=== PATIENT | female | born 1935 | race Caucasian/White ===

== ENCOUNTER 2016-06-15 09:29 | Emergency (ER) | payer MEDICARE ==
[2016-06-15 10:24] VITALS: BP 159/56
--- NOTE | 2016-06-15 10:48 | UC ---
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 - History of Current Complaint Chief Complaint: UCBackPain Stated Complaint: NECK/LEFT SHOULDER/ARM COMPLAINT Time Seen by Provider: 06/15/16 10:08 Hx Obtained From: Patient Hx Last Menstrual Period: n/a ?: No Onset/Duration: Sudden Onset, Lasting Days Timing: Constant Severity Initially: Severe Severity Currently: Severe Location Of Pain: Is Diffuse - left shoulder blade Pain Intensity: 8 Pain Scale Used: 0-10 Numeric Character: Sharp, Aching, Spasmodic Aggravating Factor(s): Movement Alleviating Factor(s): Rest Associated Signs And Symptoms: Positive: Negative Related History: Other: - s/p shoulder repalcement - Risk Factors Non-Orthopedic Risk Factor: Negative DVT Risk Factors: Negative - Allergies/Home Medications Allergies/Adverse Reactions: Allergies Allergy/AdvReac Type Severity Reaction Status Date / Time Ciprofloxacin [From Cipro] Allergy Severe Anaphylatic Verified 06/15/16 10:12 Shock, severe body aches Propoxyphene [From Darvon] Allergy Severe Anaphylatic Verified 06/15/16 10:12 Shock Tramadol AdvReac Intermediate NAUSEA/VOMI Verified 06/15/16 10:12 TING Home Medications: Home Medications Acetaminophen TAB* [Tylenol TAB*] 1,000 mg PO ONCE PRN 06/15/16 [History Confirmed 06/15/16] Simvastatin [Zocor 40 MG (NF)] 40 mg PO QPM 06/15/16 [History Confirmed 06/15/16 ] PMH/Surg Hx/FS Hx/Imm Hx Previously Healthy: Yes Endocrine History Of: Reports: Diabetes - TYPE 2 Denies: Thyroid Disease Cardiovascular History Of: Reports: Hypertension - TAKES LISINOPRIL Denies: Pacemaker/ICD Respiratory History Of: Denies: Asthma, Bronchitis GI/ History Of: Denies: Ulcer, Renal Disease Neurological History Of: Denies: Migraine Psychological History Of: Denies: Anxiety, Depression - Surgical History Surgical History: Yes Surgery Procedure, Year, and Place: ORIF LEFT HUMERUS 1969,. Carpal Tunnel BILATERAL HANDS 1996,. Right Rotator Cuff 2008,. Left Rotator Cuff 2003,. Cataract SURGERY,. Left shoulder replacement-03/28,. Colon 2013-[facility], . left arm with metal - Family History Known Family History: Positive: Hypertension - Social History Alcohol Use: None Substance Use Type: None Smoking Status (MU): Never Smoked Tobacco - Immunization History Most Recent Influenza Vaccination: 01/20/2014 Most Recent Tetanus Shot: 2012 Most Recent Pneumonia Vaccination: 7 YEARS AGO Review of Systems Constitutional: Negative Skin: Negative Eyes: Negative ENT: Negative Respiratory: Negative Cardiovascular: Negative Gastrointestinal: Negative Genitourinary: Negative Motor: Negative Neurovascular: Negative Musculoskeletal: Arthralgia, Decreased ROM, Myalgia Neurological: Negative Psychological: Negative All Other Systems Reviewed And Are Negative: Yes Physical Exam Triage Information Reviewed: Yes Appearance: Well-Appearing, Well-Nourished, Pain Distress Vital Signs: Initial Vital Signs Temp 98.2 F 06/15/16 10:00 Pulse 78 06/15/16 10:00 Resp 18 06/15/16 10:00 BP 159/56 06/15/16 10:00 Pulse Ox 100 06/15/16 10:00 Vital Signs Reviewed: Yes Eye Exam: Normal Eyes: Positive: Conjunctiva Clear ENT Exam: Normal ENT: Positive: Normal ENT inspection, Hearing grossly normal, Pharynx normal, TMs normal Dental Exam: Normal Neck exam: Normal Neck: Positive: Supple, Nontender, No Lymphadenopathy Respiratory Exam: Normal Respiratory: Positive: Chest non-tender, Lungs clear, Normal breath sounds Cardiovascular Exam: Normal Cardiovascular: Positive: RRR, No Murmur, Pulses Normal Abdominal Exam: Normal Abdomen Description: Positive: Nontender, No Organomegaly, Soft Bowel Sounds: Positive: Present Musculoskeletal Exam: Normal Musculoskeletal: Positive: No Edema, Strength Limited @ - in left shoulder, ROM Limited @ - in left shoulder in all directions, Other: - no deformity or crepitus, Neurological Exam: Normal Neurological: Positive: Alert, Muscle Tone Normal Psychological Exam: Normal Skin Exam: Normal Shoulder Course/Dx - Course Course Of Treatment: hx obtained, exam performed, ROM assessment she was able to move her shoulder in very limited ROM due to pain, no deformity, swelling or crepitus noted. - Differential Dx/Diagnosis Differential Diagnosis/HQI/PQRI: Arthritis, Bursitis, Contusion, Fracture (Open) , Sprain, Strain, Tendonitis, Other - MO Provider Diagnoses: Rhomboid strain. back pain Discharge - Discharge Plan Condition: Stable Disposition: HOME Additional Instructions: Wear the sling for support to rest the muscle in your back. twice a day go thought your Range of motion, like you did in PT. You can take tylenol 1000 mg every 8 hours for the next few day. Biofreeze or bengay for betime. Heat multiple times a day , just not with the linament. follow up if symptoms do not improve with rest.
== END 2016-06-15 11:27 | disposition home or self-care (01) ==
LOC: UCCORT 09:29
DX: S46.812A Strain of other muscles, fascia and tendons at shoulder and upper arm level, left arm, initial encounter (principal); X50.3XXA Overexertion from repetitive movements, initial encounter; Y93.89 Activity, other specified; Y92.69 Other specified industrial and construction area as the place of occurrence of the external cause; Z88.1 Allergy status to other antibiotic agents; Z88.5 Allergy status to narcotic agent; E11.8 Type 2 diabetes mellitus with unspecified complications; I10 Essential (primary) hypertension
CPT/HCPCS: 99212; G0463

== ENCOUNTER 2017-05-02 10:16 | Emergency (ER) | payer MEDICARE ==
[2017-05-02 10:24] VITALS: BP 191/63
--- NOTE | 2017-05-02 10:32 | UC ---
Respiratory Complaint HPI - HPI Summary HPI Summary: + INFLUENZA EXPOSURE + FOR FLU PT. HAS NO SX , NO COUGH ,NO SORE THROAT, NO FEVER OR CHILLS - History of Current Complaint Chief Complaint: UCGeneralIllness Stated Complaint: MEDICATION Time Seen by Provider: 05/02/17 10:18 Hx Obtained From: Patient Hx Last Menstrual Period: n/a Onset/Duration: Gradual Onset Timing: Constant Severity Initially: Mild Severity Currently: None Aggravating Factors: Nothing Alleviating Factors: Nothing Associated Signs And Symptoms: Positive: Negative - Allergies/Home Medications Allergies/Adverse Reactions: Allergies Allergy/AdvReac Type Severity Reaction Status Date / Time Ciprofloxacin [From Cipro] Allergy Severe Anaphylatic Verified 05/02/17 10:24 Shock, severe body aches Propoxyphene [From Darvon] Allergy Severe Anaphylatic Verified 05/02/17 10:24 Shock Tramadol AdvReac Intermediate NAUSEA/VOMI Verified 05/02/17 10:24 TING PMH/Surg Hx/FS Hx/Imm Hx Endocrine History: Diabetes Cardiovascular History: Hypertension - Surgical History Surgical History: Yes Surgery Procedure, Year, and Place: ORIF LEFT HUMERUS 1969,. Carpal Tunnel BILATERAL HANDS 1996,. Right Rotator Cuff 2008,. Left Rotator Cuff 2003,. Cataract SURGERY,. Left shoulder replacement-03/28,. Colon 2012-[facility], . left arm with metal - Family History Known Family History: Positive: Hypertension - Social History Alcohol Use: None Substance Use Type: None Smoking Status (MU): Never Smoked Tobacco - Immunization History Most Recent Influenza Vaccination: Most Recent Tetanus Shot: 2012 Most Recent Pneumonia Vaccination: 7 YEARS AGO Review of Systems Constitutional: Negative Skin: Negative Eyes: Negative ENT: Negative Respiratory: Negative Cardiovascular: Negative Gastrointestinal: Negative Genitourinary: Negative Motor: Negative Neurovascular: Negative Musculoskeletal: Negative Neurological: Negative Psychological: Negative Is Patient Immunocompromised?: No All Other Systems Reviewed And Are Negative: Yes Physical Exam Triage Information Reviewed: Yes Appearance: Well-Appearing, No Pain Distress, Well-Nourished Vital Signs: Initial Vital Signs Temp 98.9 F 05/02/17 10:21 Pulse 78 05/02/17 10:21 Resp 16 05/02/17 10:21 BP 191/63 05/02/17 10:21 Pulse Ox 99 05/02/17 10:21 Vital Signs Reviewed: Yes Eye Exam: Normal Eyes: Positive: Conjunctiva Clear ENT: Positive: Normal ENT inspection, Hearing grossly normal, Pharynx normal Neck: Positive: Supple, Nontender, No Lymphadenopathy Respiratory: Positive: Chest non-tender, Lungs clear, Normal breath sounds Cardiovascular: Positive: RRR, No Murmur, Pulses Normal Abdominal Exam: Normal Abdomen Description: Positive: Nontender, Soft Bowel Sounds: Positive: Present Skin Exam: Normal UC Diagnostic Evaluation - Laboratory O2 Sat by Pulse Oximetry: 99 Respiratory Course/Dx - Differential Dx/Diagnosis Provider Diagnoses: INFLUENZA EXPOSURE Discharge - Discharge Plan Condition: Stable Disposition: HOME Prescriptions: Oseltamivir Phosphate [Tamiflu] 75 mg PO DAILY WITH MEAL #14 cap Patient Education Materials: Influenza (ED) Referrals: Melani Wu MD [Primary Care Provider] - If Needed Additional Instructions: EXPOSURE TO INFLUENZA PLEASE TAKE TAMIFLU 1 PILL DAILY X 14 DAYS
== END 2017-05-02 10:40 | disposition home or self-care (01) ==
LOC: UCCORT 10:16
DX: Z20.828 Contact with and (suspected) exposure to other viral communicable diseases (principal); E11.9 Type 2 diabetes mellitus without complications; I10 Essential (primary) hypertension; Z96.612 Presence of left artificial shoulder joint; Z88.1 Allergy status to other antibiotic agents; Z88.5 Allergy status to narcotic agent
CPT/HCPCS: 99212; G0463

== ENCOUNTER 2017-05-03 08:57 | Emergency (ER) | payer MEDICARE ==
[2017-05-03 09:50] VITALS: BP 133/72
--- NOTE | 2017-05-03 10:46 | UC ---
Truncal Trauma HPI - HPI Summary HPI Summary: Patient was having a coughing fit and fell landing with her left flank and ribs against the toilet. she is being treated for the flu currently. cough is present ,bruising ad erythema over the left posterior ribs. - History Of Current Complaint Chief Complaint: UCGeneralIllness Stated Complaint: FLU EXPOSURE,FALL LFT SIDE RIBS Time Seen by Provider: 05/03/17 10:34 Hx Obtained From: Patient Hx Last Menstrual Period: n/a ?: No Onset/Duration: Sudden Onset, Lasting Hours Onset Of Pain: Immediate Severity Initially: Severe Severity Currently: Severe Mechanism Of Injury: Direct Blow, Fall From A Standing Position Aggravating Factor(s): Movement, Deep Breathing, Cough Alleviating factor(s): Nothing Associated Signs And Symptoms: Positive: Cough - Allergies/Home Medications Allergies/Adverse Reactions: Allergies Allergy/AdvReac Type Severity Reaction Status Date / Time Ciprofloxacin [From Cipro] Allergy Severe Anaphylatic Verified 05/03/17 09:49 Shock, severe body aches Propoxyphene [From Darvon] Allergy Severe Anaphylatic Verified 05/03/17 09:49 Shock Tramadol AdvReac Intermediate NAUSEA/VOMI Verified 05/03/17 09:49 TING PMH/Surg Hx/FS Hx/Imm Hx Previously Healthy: Yes - Surgical History Surgical History: Yes Surgery Procedure, Year, and Place: ORIF LEFT HUMERUS 1969,. Carpal Tunnel BILATERAL HANDS 1996,. Right Rotator Cuff 2008,. Left Rotator Cuff 2003,. Cataract SURGERY,. Left shoulder replacement-03/28,. Colon 2012-[facility], . left arm with metal - Family History Known Family History: Positive: Hypertension - Social History Alcohol Use: None Substance Use Type: None Smoking Status (MU): Never Smoked Tobacco - Immunization History Most Recent Influenza Vaccination: Most Recent Tetanus Shot: 2012 Most Recent Pneumonia Vaccination: 7 YEARS AGO Review of Systems Constitutional: Negative Skin: Bruising Eyes: Negative ENT: Nasal Discharge Respiratory: Shortness Of Breath, Cough Cardiovascular: Negative Gastrointestinal: Negative Genitourinary: Negative Motor: Negative Neurovascular: Negative Musculoskeletal: Arthralgia, Edema - small pocket over the lower left ribs, Myalgia Neurological: Negative Psychological: Negative Is Patient Immunocompromised?: No All Other Systems Reviewed And Are Negative: Yes Physical Exam Triage Information Reviewed: Yes Appearance: Well-Nourished, Ill-Appearing, Pain Distress Vital Signs: Initial Vital Signs Temp 98.7 F 05/03/17 09:44 Pulse 83 05/03/17 09:44 Resp 20 05/03/17 09:44 BP 133/72 05/03/17 09:44 Pulse Ox 100 05/03/17 09:44 Vital Signs Reviewed: Yes Eye Exam: Normal ENT: Positive: Pharyngeal erythema, Nasal congestion Dental Exam: Normal Neck exam: Normal Neck: Positive: Supple, Nontender, No Lymphadenopathy Respiratory: Positive: Chest non-tender, Lungs clear, Normal breath sounds Cardiovascular Exam: Normal Cardiovascular: Positive: RRR, No Murmur, Pulses Normal Bowel Sounds: Positive: Present Musculoskeletal: Positive: Strength Intact, ROM Limited @ - in left arm due to pain, Edema @ - over the Neurological Exam: Normal Psychological Exam: Normal Skin Exam: Normal Truncal Trauma Course/Dx - Course Course Of Treatment: hx obtained, exam performed ,meds reviewed, xray obtained, neg for fracture - Differential Dx/Diagnosis Differential Diagnosis/HQI/PQRI: Chest Wall Contusion, Pneumothorax, Rib Fracture Provider Diagnoses: rib contusion. flu Discharge - Discharge Plan Condition: Stable Disposition: HOME Patient Education Materials: Rib Contusion (ED) Referrals: Melani Wu MD [Primary Care Provider] - Additional Instructions: 1. no fracture to the ribs noted on xray 2. Use the incentive spirometer 5 breaths every hour while awake 3. COntinue with the tamiflu you have 1 pill twice a day. 4. FOllow up with any increase respiratory symptoms 5. heat the area to increase mobility
--- NOTE | 2017-05-03 11:01 | RAD ---
HISTORY: Fall, left rib pain COMPARISONS: March 10, 2014 chest x-ray VIEWS: 6, Frontal view of the chest with frontal and oblique views of the left hemithorax FINDINGS: There is no displaced rib fracture or pneumothorax. The visualized lungs are clear. There is hyperinflation. The patient is status post left shoulder arthroplasty. IMPRESSION: NO DISPLACED RIB FRACTURE OR PNEUMOTHORAX.
== END 2017-05-03 11:15 | disposition home or self-care (01) ==
LOC: UCCORT 08:57
DX: S20.02XA Contusion of left breast, initial encounter (principal); W18.30XA Fall on same level, unspecified, initial encounter; Y93.9 Activity, unspecified; Y92.002 Bathroom of unspecified non-institutional (private) residence as the place of occurrence of the external cause; J11.1 Influenza due to unidentified influenza virus with other respiratory manifestations
CPT/HCPCS: 99214; G0463

== ENCOUNTER 2018-03-16 13:05 | Emergency (ER) | payer MEDICARE ==
[2018-03-16 13:38] VITALS: BP 155/64
--- NOTE | 2018-03-16 13:52 | UC ---
Upper Extremity HPI - HPI Summary HPI Summary: Patient has developed increased swelling and redness of the left wrist. 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 fingers are throbbing, unable to bend the wrist erythema and swelling spreading up the forearm - History of Current Complaint Chief Complaint: DEONkin Stated Complaint: WRIST/HAND PAIN/SWELLING UP ARM Time Seen by Provider: 03/16/18 13:31 Hx Obtained From: Patient Hx Last Menstrual Period: n/a ?: No Onset/Duration: Sudden Onset, Lasting Days Severity Initially: Severe Severity Currently: Severe Pain Intensity: 9 Location Of Pain: Is Discrete @ - left arm Character: Throbbing, Stiffness Aggravating Factor(s): Movement Alleviating Factor(s): Nothing Associated Signs And Symptoms: Positive: Swelling, Redness, Weakness - of fingers - Allergies/Home Medications Allergies/Adverse Reactions: Allergies Allergy/AdvReac Type Severity Reaction Status Date / Time ciprofloxacin [From Cipro] Allergy Anaphylatic Verified 03/16/18 13:30 Shock propoxyphene [From Darvon] Allergy Anaphylatic Verified 03/16/18 13:30 Shock tramadol Allergy Nausea And Verified 03/16/18 13:30 Vomiting Home Medications: Home Medications Solifenacin(NF) [Vesicare(NF)] 10 mg PO DAILY 03/16/18 [History Confirmed ] PMH/Surg Hx/FS Hx/Imm Hx Previously Healthy: Yes - Surgical History Surgical History: Yes Surgery Procedure, Year, and Place: ORIF LEFT HUMERUS 1969,. Carpal Tunnel BILATERAL HANDS 1996,. Right Rotator Cuff 2008,. Left Rotator Cuff 2003,. Cataract SURGERY,. Left shoulder replacement-03/28,. Colon 2012-[place] [facility], . left arm with metal - Family History Known Family History: Positive: Hypertension - Social History Alcohol Use: None Substance Use Type: None Smoking Status (MU): Never Smoked Tobacco - Immunization History Most Recent Influenza Vaccination: 2016- Most Recent Tetanus Shot: 2012 Most Recent Pneumonia Vaccination: 7 YEARS AGO Review of Systems All Other Systems Reviewed And Are Negative: Yes Constitutional: Positive: Negative Skin: Positive: Other - redness small scab on dorsum of left wrsit Eyes: Positive: Negative ENT: Positive: Negative Respiratory: Positive: Negative Cardiovascular: Positive: Negative Gastrointestinal: Positive: Negative Genitourinary: Positive: Negative Motor: Positive: Negative Neurovascular: Positive: Negative Musculoskeletal: Positive: Decreased ROM, Edema, Myalgia Neurological: Positive: Negative Psychological: Positive: Negative Physical Exam Triage Information Reviewed: Yes Appearance: Well-Appearing, Well-Nourished, Pain Distress Vital Signs: Initial Vital Signs Temp 98.8 F 03/16/18 13:33 Pulse 92 03/16/18 13:33 Resp 17 03/16/18 13:33 BP 155/64 03/16/18 13:33 Pulse Ox 99 03/16/18 13:33 Vital Signs Reviewed: Yes Eye Exam: Normal ENT Exam: Normal Dental Exam: Normal Neck exam: Normal Respiratory Exam: Normal Respiratory: Positive: Chest non-tender, Lungs clear, Normal breath sounds, No respiratory distress Cardiovascular Exam: Normal Cardiovascular: Positive: RRR, No Murmur, Pulses Normal Abdominal Exam: Normal Abdomen Description: Positive: Nontender, No Organomegaly, Soft Bowel Sounds: Positive: Present Musculoskeletal Exam: Normal Neurological Exam: Normal Psychological Exam: Normal Skin: Positive: Other - erythem, swelling of left wrist and hand, ROM is limited due to swelling and pain. elbow and shoulder unaffected Upper Extremity Course/Dx - Course Course Of Treatment: hx obtained, exam performed ,meds reviewed, xray neg for bony injury. site is suspicious for possible septic joint. recommend to be seen in the ER for further workup. Dr Zvaala consulted and is in agreement with plan - Differential Dx/Diagnosis Differential Diagnosis/HQI/PQRI: Fracture (Closed), Septic Arthritis, Strain, Sprain Provider Diagnosis: Left arm cellulitis Discharge - Sign-Out/Discharge Documenting (check all that apply): Patient Departure All imaging exams completed and their final reports reviewed: Yes - Discharge Plan Condition: Stable Disposition: HOME-RECOMMEND TO ED Prescriptions: Cephalexin CAP* [Keflex CAP*] 500 mg PO TID #21 cap Patient Education Materials: Cellulitis (ED) Referrals: Melani Wu MD [Primary Care Provider] - Additional Instructions: 1. I recommend you report the the ER for further evaluation. - Billing Disposition and Condition Condition: STABLE Disposition: Home-Recommend to ED
[2018-03-16] MEDS ORDERED: cefTRIAXone VIAL(*) 1,000 MG VIAL IM ONE (14:16)
== END 2018-03-16 14:47 | disposition home health service (06) ==
LOC: UCCORT 13:05
DX: L03.114 Cellulitis of left upper limb (principal); Z88.1 Allergy status to other antibiotic agents; Z88.6 Allergy status to analgesic agent; Z88.5 Allergy status to narcotic agent
CPT/HCPCS: 99212; G0463

== ENCOUNTER 2018-06-13 13:07 | Emergency (ER) | payer MEDICARE ==
[2018-06-13 13:37] VITALS: BP 161/63
[2018-06-13 14:15] LABS: Influenza A Molecular NEGATIVE (Negative); Influenza B Molecular NEGATIVE (Negative)
--- NOTE | 2018-06-13 15:17 | UC ---
FLU HPI - HPI Summary HPI Summary: 83-year-old female presents with complaints of chills, headache, and mild nasal congestion which started this morning. States she is concerned for the flu and is requesting testing as her has a history of asthma and wants to make sure that he is treated prophylactically if she is positive. Denies fever,ear pain, sore throat, cough, chest pain, shortness of breath, abdominal pain, nausea, vomiting, or diarrhea. - History of Current Complaint Chief Complaint: UCRespiratory Stated Complaint: SHARIF,BODY ACHES,CHILLS Time Seen by Provider: 06/13/18 15:07 Hx Obtained From: Patient Hx Last Menstrual Period: n/a Pain Intensity: 0 - Allergy/Home Medications Allergies/Adverse Reactions: Allergies Allergy/AdvReac Type Severity Reaction Status Date / Time ciprofloxacin [From Cipro] Allergy Anaphylatic Verified 06/13/18 13:28 Shock propoxyphene [From Darvon] Allergy Anaphylatic Verified 06/13/18 13:28 Shock tramadol Allergy Nausea And Verified 06/13/18 13:28 Vomiting cephalexin AdvReac Diarrhea Verified 06/13/18 13:29 Home Medications: Home Medications Cholecalciferol (Vitamin D3) [Vitamin D3] 2,000 unit PO DAILY 06/13/18 [History Confirmed 06/13/18] PMH/Surg Hx/FS Hx/Imm Hx Endocrine History: Diabetes, Dyslipidemia Cardiovascular History: Hypertension GI/ History: Gastroesophageal Reflux, Other - Ulcerative colitis Cancer History: Colorectal Cancer - Surgical History Surgical History: Yes Surgery Procedure, Year, and Place: ORIF LEFT HUMERUS 1969,. Carpal Tunnel BILATERAL HANDS 1996,. Right Rotator Cuff 2008,. Left Rotator Cuff 2003,. Cataract SURGERY,. Left shoulder replacement-03/28,. Colon 2012-[facility], . left arm with metal - Family History Known Family History: Positive: Hypertension - Social History Occupation: Retired Lives: With Family Alcohol Use: None Substance Use Type: None Smoking Status (MU): Never Smoked Tobacco - Immunization History Most Recent Influenza Vaccination: 2016- Most Recent Tetanus Shot: 2012 Most Recent Pneumonia Vaccination: 7 YEARS AGO Review of Systems All Other Systems Reviewed And Are Negative: Yes Constitutional: Positive: Chills Skin: Negative: Rash Eyes: Negative: Drainage, Eye Redness ENT: Positive: Sinus Congestion. Negative: Sore Throat, Ear Ache, Nasal Discharge, Sinus Pain/Tenderness Respiratory: Negative: Shortness Of Breath, Cough Cardiovascular: Negative: Palpitations, Chest Pain Gastrointestinal: Negative: Abdominal Pain, Vomiting, Diarrhea, Nausea Genitourinary: Positive: Negative Musculoskeletal: Positive: Negative Neurological: Positive: Negative Is Patient Immunocompromised?: No Physical Exam - Summary Physical Exam Summary: GENERAL APPEARANCE: Well developed, well nourished, alert and cooperative, and appears to be in no acute distress. EYES: Conjunctiva clear. No drainage. Vision is grossly intact. EARS: External auditory canals and tympanic membranes clear, hearing grossly intact. NOSE: Mild nasal congestion. No nasal discharge. No sinus tenderness. THROAT: Pharynx normal No tonsilar inflammation, swelling, exudate, or lesions. Uvula midline. NECK: Neck supple, non-tender without lymphadenopathy. CARDIAC: Normal S1 and S2. No S3, S4 or murmurs. Rhythm is regular. There is no peripheral edema, cyanosis or pallor. Extremities are warm and well perfused. Capillary refill is less than 2 seconds. Peripheral pulses intact. LUNGS: Clear to auscultation without rales, rhonchi, wheezing or diminished breath sounds. ABDOMEN: Positive bowel sounds. Soft, nondistended, nontender. No guarding or rebound. No masses or hepatosplenomegally. MUSKULOSKELETAL: ROM intact to all extremities. No joint erythema or tenderness. Normal muscular development. Normal gait. SKIN: Skin normal color, texture and turgor with no lesions or eruptions. Triage Information Reviewed: Yes Vital Signs: Initial Vital Signs Temp 98.5 F 06/13/18 13:32 Pulse 77 06/13/18 13:32 Resp 18 06/13/18 13:32 BP 161/63 06/13/18 13:32 Pulse Ox 100 06/13/18 13:32 Vital Signs Reviewed: Yes Flu Course/Dx - Course Course Of Treatment: 83-year-old female presents with complaints of chills, headache, and mild nasal congestion which started this morning. States she is concerned for the flu and is requesting testing as her has a history of asthma and wants to make sure that he is treated prophylactically if she is positive. Denies fever,ear pain, sore throat, cough, chest pain, shortness of breath, abdominal pain, nausea, vomiting, or diarrhea. Afebrile. Hypertensive but otherwise vital signs stable. Exam reveals an older adult female in no acute distress with an unremarkable exam except for some mild nasal congestion. Rapid flu test was negative. Recommending symptomatic treatment for a viral upper respiratory infection. She is to follow up with her primary care provider in 5 days if symptoms do not improve. Anticipatory guidance and warning symptoms were reviewed with the patient. Verbalizes understanding and agrees with plan of care. - Differential Dx/Diagnosis Differential Diagnosis/HQI/PQRI: Bronchitis, Influenza, Pneumonia, Upper Respiratory Infection Provider Diagnosis: Viral URI Discharge - Sign-Out/Discharge Documenting (check all that apply): Patient Departure All imaging exams completed and their final reports reviewed: No Studies - Discharge Plan Condition: Stable Disposition: HOME Patient Education Materials: Upper Respiratory Infection (ED) Referrals: Melani Wu MD [Primary Care Provider] - 5 Days (If no improvement in symptoms. ) Additional Instructions: The flu test performed in the clinic today was negative for flu. Your history and exam are consistent with a viral upper respiratory infection. Viral infections do not respond to antibiotics and are limited to the treatment of symptoms. Viral infections typically run their course in 7-10 days. Get plenty of rest. Drink plenty of fluids to avoid dehydration especially if you are running any fever. Use a saline rinse kit such as Neti Pot or NeilMed at least twice a day to help thin secretions and promote drainage of the sinuses. Use salt water gargles several times a day if you have a sore throat. Follow up with your primary care provider in 5 days if symptoms persist. Seek immediate medical attention in the emergency room if you have fever greater than 100.5 F despite taking acetaminophen or ibuprofen, have chest pain , difficulty breathing, are unable to swallow, or have any worsening of symptoms. - Billing Disposition and Condition Condition: STABLE Disposition: Home - Attestation Statements Provider Attestation: Per institutional requirements, I have reviewed the chart, however, I was not consulted specifically or made aware of this patient by the midlevel provider. I did not personally evaluate, interact with , or disposition this patient.
== END 2018-06-13 15:24 | disposition home or self-care (01) ==
LOC: UCCORT 13:07
DX: J06.9 Acute upper respiratory infection, unspecified (principal); E78.5 Hyperlipidemia, unspecified; E11.9 Type 2 diabetes mellitus without complications; I10 Essential (primary) hypertension; Z88.1 Allergy status to other antibiotic agents; Z88.8 Allergy status to other drugs, medicaments and biological substances; Z88.5 Allergy status to narcotic agent; Z79.899 Other long term (current) drug therapy
CPT/HCPCS: 99211; G0463